=== PATIENT | female | born 1945 | race Caucasian/White ===

== ENCOUNTER → 2023-09-20 | Outpatient (CLI) | payer MEDICARE, OTHER ==
--- NOTE | 2023-09-20 16:05 | Diagnostic Imaging Report ---
CLINICAL INDICATION: Patient with chronic bilateral neck pain with sciatica. Patient with lumbar radiculopathy. EXAMS: 1: X-ray of the lumbar spine, 5 images. 2: X-ray of the bilateral sacroiliac joints, 3 images. COMPARISON: None. FINDINGS: There is degenerative grade 1 anterolisthesis of L3 on L4 and L4 on L5. No pars defects seen. There is no acute fracture or dislocation. There is left curvature of the thoracolumbar spine. There are mild hypertrophic spurs involving the lumbar spine. There is lower lumbar spine facet arthropathy/sclerosis. There is moderate to severe loss of disk space height at the L4-L5 level. There is mild to moderate loss of disk space height at the L2-L3 and L3-L4 levels. The sacroiliac joints show mild sclerosis with right side more than the left. There is no evidence of bony erosive changes. There is no fracture visualized portions of pelvis or hips. There are small degenerative spurs involving both hips. There is amorphous calcification seen laterally adjacent to the acetabular region which may represent sequelae from chronic trauma or or degenerative disease. LUMBAR SPINE AND SACROILIAC JOINTS IMPRESSION: 1: There is multilevel lumbar spine degenerative disease with no acute fracture. 2: There is multilevel grade 1 anterolisthesis of L3 on L4 and L4 on L5 which is degenerative. 3: The pelvis, sacrum and both hips show no acute fracture. 4: There is mild degenerative change involving the sacroiliac joints and both hips. Dictated by: Dictated on workstation # [id number]
== END ==
LOC: RAD 14:21
PROVIDERS: ATTEND Nurse Practitioner
DX: M51.16 Intervertebral disc disorders with radiculopathy, lumbar region (principal); M43.16 Spondylolisthesis, lumbar region; M16.0 Bilateral primary osteoarthritis of hip; M46.1 Sacroiliitis, not elsewhere classified
CPT/HCPCS: 72110; 72202